=== PATIENT | male | born 1935 | race African-American/Black ===

== ENCOUNTER 2017-04-02 08:13 | Emergency (ER) | payer MEDICARE, OTHER ==
[~2017-04-02] VITALS: Ht 170.2 cm; Wt 67.0 kg
[2017-04-02] MEDS ORDERED: FUROSEMIDE 40MG/4ML VIAL IV STA (09:05)
[2017-04-02 09:23] LABS: BASOPHILS % 0.1 % (0.0-2.0); EOSINOPHILS % 0.3 % (0.0-5.0); HEMOGLOBIN. 13.7 g/dL (14.0-18.0); MEAN CORPUSCULAR HEMOGLOBIN 31.4 pg (28.0-32.0); MEAN CORPUSCULAR HGB CONC 32.6 g/dL (31.0-37.0); MEAN CORPUSCULAR VOLUME 96.1 fL (80.0-94.0); MONOCYTES % 6.5 % (2.0-8.0); NEUTROPHILS % 82.1 % (40.0-76.0); RED BLOOD CELL COUNT 4.37 mill/uL (4.7-6.1); RED CELL DISTRIBUTION WIDTH 15.4 % (11.6-14.6); WHITE BLOOD COUNT 5.7 x1000/uL (4.5-11.0)
[2017-04-02 09:26] LABS: DIFFERENTIAL COMMENT 1
[2017-04-02 09:27] LABS: ADD RBC MORPHOLOGY YES
[2017-04-02 09:32] LABS: INR 1.5; PARTIAL THROMBOPLASTIN TIME 25.9 sec (24.0-34.0); PROTHROMBIN TIME 16.1 sec
[2017-04-02 09:42] LABS: ALANINE AMINOTRANSFERASE 45 IU/L (13-61); ALBUMIN 3.3 g/dL (3.4-5.0); ANION GAP 16; CALCIUM 8.4 mg/dL (8.5-10.1); CARBON DIOXIDE 26 mEq/L (21-32); CHLORIDE 105 mEq/L (98-107); INDEX HEMOLYSI 1 (1-3); INDEX ICTERIC 1 (1-4); INDEX LIPEMIC 1 (1-3); LIPASE 169 IU/L (73-393); NT PRO B-TYPE NATRIURETIC PEP 24773 pg/mL (5-125); TROPONIN I 0.26 ng/mL (0.00-0.04); UREA NITROGEN BLOOD 43 mg/dL (7-21); eGFR > 60 mL/min (>60)
[2017-04-02 10:02] LABS: ANISOCYTOSIS 1+; PLATELET ESTIMATE DECREASED
[2017-04-02 10:03] LABS: PLATELET 91 x1000/uL (130-400)
[2017-04-02 13:02] VITALS: BP 115/63
== END 2017-04-02 13:23 | disposition short-term general hospital (02) ==
LOC: ER 08:18
DX: I50.9 Heart failure, unspecified (principal); E87.70 Fluid overload, unspecified; I48.91 Unspecified atrial fibrillation; Z85.46 Personal history of malignant neoplasm of prostate
CPT/HCPCS: 36415; 71010; 80053; 82962; 83690; 83880; 84484; 85025; 85610; 85730; 93005; 96374; 99285; J1940; Z7610